=== PATIENT | female | born 1970 | race Caucasian/White ===

== ENCOUNTER 2017-11-10 21:38 | Emergency (ER) | payer OTHER ==
[2017-11-10 22:26] LABS: URINE BLOOD (Dip) POC 1+ (NEGATIVE); URINE GLUCOSE (Dip) POC Negative (NEGATIVE); URINE KETONES (Dip) POC Negative (NEGATIVE); URINE LEUKOCYTE EST (Dip) POC Negative (NEGATIVE); URINE NITRITE (Dip) POC Negative (NEGATIVE); URINE TOTAL PROTEIN POC Negative (NEGATIVE)
[2017-11-10] MEDS: LORAZEPAM 1 MG TAB PO (22:36)
[2017-11-10] MEDS: KETOROLAC 60 MG INJ IM (22:39)
== END 2017-11-10 23:18 | disposition home or self-care (01) ==
LOC: FTE 21:38
DX: M54.2 Cervicalgia (principal)
CPT/HCPCS: 81003; 81025; 96372; 99284-25

== ENCOUNTER 2018-10-09 11:31 | Emergency (ER) | payer BC, OTHER | END 2018-10-09 12:53 | disposition home or self-care (01) | LOC: FTE 11:31 | DX: H10.9 Unspecified conjunctivitis (principal) | CPT/HCPCS: 99283; Z7502 ==